=== PATIENT | male | born 1985 | race Caucasian/White ===

== ENCOUNTER → 2017-01-10 | Outpatient (CLI) | payer OTHER ==
--- NOTE | 2017-01-10 09:09 | DIAGNOSTIC IMAGING REPORT ---
ULTRASOUND LEFT LOWER QUADRANT ABDOMEN LIMITED CLINICAL HISTORY: Left lower quadrant abdominal pain. Nausea. COMPARISON STUDY: No priors. FINDINGS: Real-time, grayscale, and color flow sonography of the left lower quadrant of the abdomen was performed. The liver and spleen are normal as visualized. The spleen measures 12.2 cm in length. No sonographic abnormality is identified in the left lower quadrant indicated site of interest. No free fluid is seen. IMPRESSION: No acute abnormality is identified. Electronically signed by: Sea Gusman M.D. 01/10/2017 9:07 AM Dictated Date/Time: 01/10/2017 9:06 AM
== END | disposition home or self-care (01) ==
LOC: C.ULTR 08:12
PROVIDERS: ATTEND Registered Nurse
DX: R11.0 Nausea (principal); R10.32 Left lower quadrant pain

== ENCOUNTER → 2017-03-11 | Day surgery (SDC) | payer OTHER ==
[2017-03-04 13:51] VITALS: BMI 23.0
[~2017-03-11] VITALS: Ht 188 cm; Wt 81.8 kg
[~2017-03-11] MED LIST: FENTANYL CITRATE INJ 50 MCG/1 ML 2 ML VIAL ONE; MIDAZOLAM HCL 1 MG/ML 2ML VIAL ONE; MIDAZOLAM HCL 5 MG/ML 1 ML VIAL ONE; SODIUM CHLORIDE 0.9% 500ML 500 ML IV ONE
[2017-03-11 15:01] VITALS: Ht 188 cm; Wt 81.8 kg
--- NOTE | 2017-03-11 15:39 | Endo History and Physical ---
History & Physical Date of Service: March 11, 2017. Chief Complaint: LLQ PAIN NAUSEA Referring Physician: [facility] History of Present Illness 31 yo CM who presents for colonoscopy secondary to LLQ abdominal pain and nausea. Past Surgical History Hx Cardiac Surgery: No Hx Internal Defibrillator: No Hx Pacemaker: No Hx Abdominal Surgery: No Hx of Implantable Prosthesis: No Hx Post-Op Nausea and Vomiting: No Hx Cancer Surgery: No Hx Thoracic Surgery: No Hx Orthopedic: Yes (LEFT KNEE ARTHROSCOPY) Hx Urinary Tract Surgery: No Family History None Social History Smoking Status: Never Smoker Hx Substance Use: No Hx Alcohol Use: No Allergies Coded Allergies: NO KNOWN DRUG ALLERGIES (Verified Allergy, Unknown, ., 03/11/17) Current Medications Reported Home Medications Medications Dose Route/Sig Max Daily Dose Days Date Category No Active Prescriptions or Reported Medications Rx Vital Signs Weight (Kilograms): 81.82 Height (Feet): 6 Height (Inches): 2 Date Time Temp Pulse Resp B/P Pulse Ox O2 Delivery O2 Flow Rate FiO2 03/11/17 15:06 36.9 89 18 131/79 95 Room Air Physical Exam General Appearance: WD/WN, no apparent distress Respiratory/Chest: Auscultation: breath sounds normal Cardiovascular: Heart Auscultation: RRR Abdomen: Bowel Sounds: normal Inspection & Palpation: soft, non-distended, no tenderness, guarding & rebound Assessment and Plan Assessment: 31 yo CM who presents for colonoscopy secondary to LLQ abdominal pain and nausea. Plan: Proceed with colonoscopy.
--- NOTE | 2017-03-11 16:36 | Discharge Instructions ---
Endoscopy Patient Instructions Date / Procedure(s) Performed March 11, 2017. Allergy Information Coded Allergies: NO KNOWN DRUG ALLERGIES (Verified Allergy, Unknown, ., 03/11/17) Discharge Date / Findings March 11, 2017. Normal colonoscopy Medication Instructions Reported Home Medications Medications Dose Route/Sig Max Daily Dose Days Date Category No Active Prescriptions or Reported Medications Rx Provider Instructions Activity Restrictions - No exercising or heavy lifting for 24 hours. - Do not drink alcohol the day of the procedure. - Do not drive a car or operate machinery until the day after the procedure. - Do not make any important decisions or sign important papers in 24 hours after the procedure. Following Day: - Return to full activity which may include returning to work/school. Diet Start your diet with liquids and light foods (jello, soup, juice, toast). Then eat your usual diet if not nauseated. Treatment For Common After Affects For mild abdominal pain, bloating, or excessive gas: - Rest - Eat lightly - Lie on right side Follow-Up Information Follow-up with [facility] as scheduled Anesthesia Information What You Should Know You have had a procedure that required some medicine to reduce anxiety and discomfort. This treatment is called moderate sedation. After receiving the treatment, you may be sleepy, but you will be able to breathe on your own. The effects of the treatment may last for several hours. Follow these instructions along with Activity/Diet recommendations noted above: * Do NOT do anything where dizziness or clumsiness would be dangerous. * Rest quietly at home today, then you can be up and about tomorrow. * Have a responsible person stay with you the rest of today. * You may have had an I.V. today. If so, you may take the dressing off later today. Recommendations Call your doctor if: * Trouble breathing * Continuous vomiting for more than 24 hours * Temperature above 101 degrees * Severe abdominal pain or bloating * Pain not relieved by pain medicine ordered * There is increased drainage or redness from any incision * A large amount of rectal bleeding greater than 2-3 tablespoons. (If you had a polyp/s removed or have hemorrhoids, a small amount of blood - from the rectum is to be expected.) * You have any unanswered questions or concerns. IN THE EVENT OF A SERIOUS EMERGENCY, GO TO THE NEAREST EMERGENCY ROOM Your discharge instructions were prepared by provider Kiko Santos. Patient Instructions Signature Page Tim Almazan Patient (or Guardian) Signature/Date: I have read and understand the instructions given to me by my caregivers. Caregiver/RN/Doctor Signature/Date: The above-named patient and/or guardian has received patient instructions on this date. + Original Patient Signature Page (only) stays with chart. Please make copy for patient.
--- NOTE | 2017-03-11 16:46 | GI REPORT ---
Procedure Date: 03/11/2017 4:09 PM Procedure: Colonoscopy Indications: Abdominal pain in the left lower quadrant Medicines: Fentanyl 125 micrograms IV, Midazolam 7 mg IV Complications: No immediate complications. Estimated Blood Loss: Estimated blood loss: none. Procedure: Pre-Anesthesia Assessment: - Prior to the procedure, a History and Physical was performed, and patient medications and allergies were reviewed. The patient's tolerance of previous anesthesia was also reviewed. The risks and benefits of the procedure and the sedation options and risks were discussed with the patient. All questions were answered, and informed consent was obtained. Prior Anticoagulants: The patient has taken no previous anticoagulant or antiplatelet agents. ASA Grade Assessment: II - A patient with mild systemic disease. After reviewing the risks and benefits, the patient was deemed in satisfactory condition to undergo the procedure. After I obtained informed consent, the scope was passed under direct vision. Throughout the procedure, the patient's blood pressure, pulse, and oxygen saturations were monitored continuously. The scope was introduced through the anus and advanced to the terminal ileum. The colonoscopy was performed without difficulty. The patient tolerated the procedure well. The quality of the bowel preparation was good. The terminal ileum, ileocecal valve, appendiceal orifice, and rectum were photographed. Findings: The colon (entire examined portion) appeared normal. Impression: - The entire examined colon is normal. - No specimens collected. Recommendation: - Resume previous diet. - Continue present medications. - Repeat colonoscopy at age 52 for surveillance. - Return to GI office as previously scheduled. Kiko Santos DO 03/11/2017 4:45:57 PM This report has been signed electronically. Note Initiated On: 03/11/2017 4:09 PM I attest to the content of the Intraoperative Record and orders documented therein, exceptions below
[2017-03-11 17:03] VITALS: BP 126/78; PULSE 79; O2SAT 98
== END | disposition home or self-care (01) ==
LOC: C.GI 14:51
PROVIDERS: ATTEND Internal Medicine
DX: R10.32 Left lower quadrant pain (principal); R11.0 Nausea